=== PATIENT | female | born 1935 | race Caucasian/White ===

== ENCOUNTER 2020-05-25 19:55 | Emergency (ER) | payer SELFPAY ==
--- NOTE | 2020-05-25 20:52 | RAD REPORT ---
EXAM DESCRIPTION: RAD - Chest Single View - 05/25/2020 8:44 pm CLINICAL HISTORY: leg swelling, shortness of breath COMPARISON: None TECHNIQUE: AP portable chest image was obtained 05/25/2020 8:44 pm . FINDINGS: Lung volumes are very low accentuating heart, vasculature and lung markings. Large hiatal hernia is also present. Heart size is normal. Pulmonary vasculature within normal limits. No measurab le pleural effusion and no pneumothorax. No acute bony abnormality seen. No acute aortic findings melva pected. IMPRESSION: Limited shallow inspiration examination shows no focal mass or consolidation. Mild interstitial edema or infiltrate could be masked by the low lung volumes.
[2020-05-25 21:15] LABS: Absolute Lymphocytes (CBC) 1.3 K/uL (0.7-4.9); Basophils % 0.5 % (0-1.3); Hematocrit 39.2 % (36.0-45.0); Lymphocytes % 16.1 % (15.3-44.8); MPV 8.5 fL (7.6-11.3)
[2020-05-25 21:21] LABS: Bilirubin Direct 0.1 mg/dL (0-0.2); Bilirubin Total 0.5 mg/dL (0.2-1.0); Protein, Total 6.4 g/dL (6.4-8.2)
--- NOTE | 2020-05-25 22:24 | RAD REPORT ---
EXAM DESCRIPTION: USExtrem Venous W Compress Bil05/25/2020 9:48 pm CLINICAL HISTORY: Bilateral leg swelling COMPARISON: none FINDINGS: The common femoral, superficial femoral, popliteal and posterior tibial veins bilaterally are compressible and demonstrate augmentation. Doppler demonstrates good flow. IMPRESSION: No evidence of deep venous thrombosis involving either lower extremity.
[2020-05-25] MEDS ORDERED: CEFTRIAXONE/SWI 1gm 1 GM/10 ML SYR ONE (23:10)
[2020-05-25 23:45] LABS: Urine Bacteria LOADED /HPF (<20); Urine Culture Reflex Order REFLEXED
[2020-05-25 23:47] LABS: Urine RBC NONE SEEN /HPF (NONE SEEN)
[2020-05-26] MEDS ORDERED: MORPHINE 2 MG/ML SYR ONE (00:01)
--- NOTE | 2020-05-26 00:15 | ER ---
Nurse's Notes [facility] Name: Genet Alexander Age: 85 yrs Sex: Female : 1935 Arrival Date: 05/25/2020 Time: 19:58 Bed 5 Private MD: Diagnosis: Generalized abdominal pain;Urinary tract infection, site not specified;Edema, unspecified-bilateral lower extremity Presentation: 05/25 20:07 Chief complaint: EMS states: pt was recently discharged from [facility] with similar sg complaints to today. pt reports leg swelling and shortness of breath on exertion. Coronavirus screen: Proceed with normal triage. Ebola Screen: Patient negative for fever greater than or equal to 101.5 degrees Fahrenheit, and additional compatible Ebola Virus Disease symptoms Patient denies exposure to infectious person. Patient denies travel to an Ebola-affected area in the 21 days before illness onset. No symptoms or risks identified at this time. Initial Sepsis Screen: Does the patient meet any 2 criteria? No. Patient's initial sepsis screen is negative. Does the patient have a suspected source of infection? No. Patient's initial sepsis screen is negative. Risk Assessment: Do you want to hurt yourself or someone else? Patient reports no desire to harm self or others. Onset of symptoms was May 25, 2020. Care prior to arrival: None. 20:07 Method Of Arrival: EMS: [facility] sg 20:07 Acuity: WENDY 3 sg Historical: - Allergies: 21:58 No Known Allergies; rr5 - Home Meds: 21:58 atorvastatin 20 mg oral tab [Active]; citalopram oral [Active]; Diphenhydramine Oral rr5 [Active]; Docusate Sodium Oral [Active]; losartan 50 mg oral tab [Active]; Metoprolol Tartrate Oral [Active]; tramadol 50 mg Oral tab [Active]; - PMHx: 21:58 Hypertension; Hyperlipidemia; rr5 - PSHx: 21:58 prolapse; rr5 - Immunization history:: Adult Immunizations up to date. - Social history:: Smoking status: unknown. Screenin:30 Abuse screen: Denies threats or abuse. Denies injuries from another. Nutritional rr5 screening: No deficits noted. Tuberculosis screening: No symptoms or risk factors identified. Fall Risk IV access (20 points). Total Singh Fall Scale indicates No Risk (0-24 pts). Assessment: 21:00 General: Appears in no apparent distress. comfortable, Behavior is calm, cooperative, rr5 appropriate for age. Pain: Denies pain. Neuro: Level of Consciousness is awake, alert, obeys commands, Oriented to person, place, time. Cardiovascular: Reports shortness of breath, Capillary refill < 3 seconds Patient's skin is warm and dry. Respiratory: Reports shortness of breath Airway is patent Respiratory effort is even, unlabored, Respiratory pattern is regular, symmetrical. GI: Abdomen is round non-distended, obese. : No signs and/or symptoms were reported regarding the genitourinary system. EENT: No signs and/or symptoms were reported regarding the EENT system. Derm: Skin is intact, Skin temperature is warm. Musculoskeletal: Swelling present in left foot. 22:20 Reassessment: april daughter of the patient updated, verbal approval from the patient rr5 agreed to give information [id number]. 22:40 Reassessment: Patient appears in no apparent distress at this time. Patient is alert, rr5 oriented x 3, equal unlabored respirations, skin warm/dry/pink. 23:50 Reassessment: complaint of left leg pain pain score 8/10. ED provider aware with order rr5 made and carried out. 23:50 Reassessment: Patient appears in no apparent distress at this time. Patient and/or rr5 family updated on plan of care and expected duration. Pain level reassessed. Patient is alert, oriented x 3, equal unlabored respirations, skin warm/dry/pink. 05/26 00:40 Reassessment: Patient appears in no apparent distress at this time. Patient is alert, rr5 oriented x 3, equal unlabored respirations, skin warm/dry/pink. snacks given with good appetite. Patient states feeling better. Patient states symptoms have improved. 01:30 Reassessment: Patient appears in no apparent distress at this time. Patient is alert, rr5 oriented x 3, equal unlabored respirations, skin warm/dry/pink. for discharge awaiting for her transport. 02:15 Reassessment: Patient appears in no apparent distress at this time. Patient is alert, rr5 oriented x 3, equal unlabored respirations, skin warm/dry/pink. discharge instruction given and explained without complaints made. Patient states feeling better. Patient states symptoms have improved. Vital Signs: 05/25 20:40 BP 100 / 54; Pulse 77; Resp 20; Temp 97.9; Pulse Ox 100% ; Pain 0/10; rr5 21:52 BP 154 / 67; Pulse 75; Resp 22; Temp 98; Pulse Ox 98% on R/A; rr5 23:00 BP 144 / 64; Pulse 70; Resp 23; Pulse Ox 98% on R/A; rr5 05/26 00:00 BP 155 / 78; Pulse 85; Resp 21; Pulse Ox 98% on R/A; rr5 00:50 BP 147 / 71; Pulse 98; Resp 24; Temp 98; Pulse Ox 98% ; rr5 02:00 BP 131 / 85; Pulse 86; Resp 20; Temp 98.2; Pulse Ox 99% ; rr5 ED Course: 05/25 19:58 Patient arrived in ED. lp1 19:59 Franklin Zapata PA is PHCP. cp 19:59 Franklin Sarmiento MD is Attending Physician. cp 20:03 Ozzy Lawrence RN is Primary Nurse. rr5 20:09 Arm band placed on. sg 20:40 Patient has correct armband on for positive identification. Placed in gown. Bed in low rr5 position. Call light in reach. Side rails up X2. campus monitor on. Pulse ox on. NIBP on. 20:40 EKG done, by ED staff, reviewed by Franklin REIS. rr5 20:49 Triage completed. sg 21:00 Inserted saline lock: 20 gauge in right forearm, using aseptic technique. Blood rr5 collected. 22:59 Urine collected: clean catch specimen, clear. rr5 05/26 02:15 No provider procedures requiring assistance completed. IV discontinued, intact, rr5 bleeding controlled, No redness/swelling at site. Pressure dressing applied. Administered Medications: 05/25 23:02 Drug: Rocephin 1 grams Route: IV; Rate: calculated rate; Site: right forearm; rr5 05/26 00:10 Follow up: Response: No adverse reaction; IV Status: Completed infusion; IV Intake: [id number] 05/25 23:56 Drug: morphine 2 mg {Note: rass 0.} Route: IVP; Site: right antecubital; rr5 05/26 00:10 Follow up: Response: No adverse reaction; Pain is decreased; RASS: Alert and Calm (0) rr5 00:40 Drug: Hydrocodone-Acetaminophen (7.5 mg-325 mg) 1 tabs {Note: RASS 0.} Route: PO; rr5 02:00 Follow up: Response: No adverse reaction; Pain is decreased; RASS: Alert and Calm (0) rr5 Intake: 00:10 IV: 10ml; Total: 10ml. rr5 Outcome: 00:14 Discharge ordered by MD. cp 02:15 Discharged to home via wheelchair, with family. rr5 02:15 Condition: stable 02:15 Discharge instructions given to patient, family, Instructed on discharge instructions, follow up and referral plans. medication usage, Demonstrated understanding of instructions, follow-up care, medications, Prescriptions given X 1. 02:18 Patient left the ED. rr5 Addendum: 05/30/2020 10:27 Addendum: Culture Results: Positive urine culture. No further action required. Bacteria s s sensitive to prescribed antibiotic. Signatures: Fareed Rey, RN RN sg Mariama Khanna RN RN ss Yoselyn Sykes RN RN lp1 Franklin Zapata PA PA cp Roque, Raymond, RN RN rr5
--- NOTE | 2020-05-26 00:15 | EDPHYS ---
Physician Documentation [facility] Name: Genet Alexander Age: 85 yrs Sex: Female : 1935 Arrival Date: 05/25/2020 Time: 19:58 Bed 5 Private MD: ED Physician Franklin Sarmiento HPI: 05/25 20:30 This 85 yrs old Female presents to ER via Unassigned with complaints of cp Abdominal Pain. 20:30 The patient presents with abdominal pain that is diffuse. cp 20:30 Onset: The symptoms/episode began/occurred today, while in restroom at home. cp 20:30 The symptoms do not radiate. Associated signs and symptoms: Pertinent positives: cp bilateral leg pain and swelling, Pertinent negatives: blood in stools, chest pain, constipation, diarrhea, fever, vomiting. Severity of pain: in the emergency department the pain has resolved. Historical: - Allergies: 21:58 No Known Allergies; rr5 - Home Meds: 21:58 atorvastatin 20 mg oral tab [Active]; citalopram oral [Active]; Diphenhydramine Oral rr5 [Active]; Docusate Sodium Oral [Active]; losartan 50 mg oral tab [Active]; Metoprolol Tartrate Oral [Active]; tramadol 50 mg Oral tab [Active]; - PMHx: 21:58 Hypertension; Hyperlipidemia; rr5 - PSHx: 21:58 prolapse; rr5 - Immunization history:: Adult Immunizations up to date. - Social history:: Smoking status: unknown. ROS: 20:35 Constitutional: Negative for body aches, chills, fever, poor PO intake. cp 20:35 Eyes: Negative for injury, pain, redness, and discharge. cp 20:35 ENT: Negative for ear pain, sore throat, difficulty swallowing, difficulty handling secretions. 20:35 Cardiovascular: Positive for edema, Negative for chest pain, palpitations. 20:35 Respiratory: Negative for cough, shortness of breath, wheezing. 20:35 Abdomen/GI: Positive for abdominal pain, Negative for nausea, vomiting, and diarrhea, constipation, black/tarry stool, rectal bleeding. 20:35 Back: Negative for radiated pain. 20:35 : Negative for urinary symptoms. 20:35 Skin: Negative for rash. 20:35 Neuro: Negative for altered mental status, headache, numbness, tingling, weakness. 20:35 All other systems are negative. Exam: 20:39 ECG was reviewed by the Attending Physician. cp 20:40 Constitutional: The patient appears in no acute distress, alert, awake, cp non-diaphoretic, non-toxic, well developed, well nourished. 20:40 Head/Face: Normocephalic, atraumatic. cp 20:40 Eyes: Periorbital structures: appear normal, Conjunctiva: normal, no exudate, no injection, Sclera: no appreciated abnormality, Lids and lashes: appear normal, bilaterally. 20:40 ENT: External ear(s): are unremarkable, Nose: is normal, Mouth: Lips: moist, Oral mucosa: pink and intact, moist, Posterior pharynx: is normal, airway is patent, no erythema, no exudate. 20:40 Chest/axilla: Inspection: normal, Palpation: is normal, no crepitus, no tenderness. 20:40 Cardiovascular: Rate: normal, Rhythm: regular, Edema: 2+ edema to level of right lower leg and left lower leg, JVD: is not appreciated. 20:40 Respiratory: the patient does not display signs of respiratory distress, Respirations: labored breathing, is not present, intercostal retractions, are absent, shallow respirations, that is mild, Breath sounds: are clear throughout, no decreased breath sounds, no stridor, no wheezing. 20:40 Abdomen/GI: Inspection: abdomen appears normal, Bowel sounds: active, all quadrants, Palpation: abdomen is soft and non-tender, in all quadrants, rebound tenderness, is not appreciated, voluntary guarding, is not appreciated, involuntary guarding, is not appreciated. 20:40 Back: pain, is absent. 20:40 Skin: cellulitis, is not appreciated, no rash present. 20:40 Neuro: Orientation: to person, place \T\ time. Mentation: is normal, Motor: moves all fours, strength is normal. Vital Signs: 20:40 BP 100 / 54; Pulse 77; Resp 20; Temp 97.9; Pulse Ox 100% ; Pain 0/10; rr5 21:52 BP 154 / 67; Pulse 75; Resp 22; Temp 98; Pulse Ox 98% on R/A; rr5 23:00 BP 144 / 64; Pulse 70; Resp 23; Pulse Ox 98% on R/A; rr5 07 00:00 BP 155 / 78; Pulse 85; Resp 21; Pulse Ox 98% on R/A; rr5 00:50 BP 147 / 71; Pulse 98; Resp 24; Temp 98; Pulse Ox 98% ; rr5 02:00 BP 131 / 85; Pulse 86; Resp 20; Temp 98.2; Pulse Ox 99% ; rr5 MDM: 05/25 20:08 Patient medically screened. cp 21:00 Differential diagnosis: appendicitis, bowel obstruction, cholecystitis, Cholelithiasis, cp diverticulitis, gastritis, non-specific abd pain, pancreatitis, Ureterolithiasis, urinary tract infection, cardiac arrythmia, CHF. 05/26 00:13 Data reviewed: vital signs, nurses notes, lab test result(s), EKG, radiologic studies, cp plain films, ultrasound. 00:13 Counseling: I had a detailed discussion with the patient and/or guardian regarding: the cp historical points, exam findings, and any diagnostic results supporting the discharge/admit diagnosis, lab results, radiology results, to return to the emergency department if symptoms worsen or persist or if there are any questions or concerns that arise at home. 00:13 Test interpretation: by ED physician or midlevel provider: ECG. Response to treatment: cp the patient's symptoms have markedly improved after treatment, and as a result, I will discharge patient. Special discussion: Based on the patient's Hx, exam, and Dx evaluation, there is no indication for emergent surgery or inpatient Tx. It is understood by the patient/guardian that if the Sx's persist or worsen they need to return immediately for re-evaluation. 05/25 20:08 Order name: Basic Metabolic Panel 05/25 20:08 Order name: CBC with Diff cp 05/25 20:08 Order name: Hepatic Function; Complete Time: 22:08 cp 05/25 22:09 Interpretation: Normal except: ALB 3.0; A/G 0.9. cp 05/25 20:08 Order name: Lipase; Complete Time: 22:08 cp 05/25 20:08 Order name: Urine Microscopic Only; Complete Time: 23:51 cp 05/26 00:09 Interpretation: Normal except: UBACT LOADED. cp 05/25 20:10 Order name: Basic Metabolic Panel; Complete Time: 22:08 EDMS 05/25 22:09 Interpretation: Normal except: CL 108; GLUC 158; GFR 60. cp 05/25 20:09 Order name: US Extremity Venous W Compression Terrence cp 05/25 20:10 Order name: CBC with Automated Diff; Complete Time: 22:08 EDMS 05/26 00:09 Interpretation: Normal except: RDW 15.5; MN% 12.8. cp 05/25 20:10 Order name: XRAY Chest (1 view) cp 05/25 20:10 Order name: BNP; Complete Time: 22:09 cp 05/25 20:53 Order name: RAD; Complete Time: 22:09 EDMS 05/25 22:10 Order name: XRAY KUB cp 05/25 23:08 Order name: US; Complete Time: 23:51 EDMS 05/25 23:15 Order name: Urine Dipstick--Ancillary (enter results) ar5 05/25 20:08 Order name: IV Saline Lock; Complete Time: 21:10 cp 05/25 20:08 Order name: Labs collected and sent; Complete Time: 21:10 cp 05/25 20:08 Order name: Urine Dipstick-Ancillary (obtain specimen); Complete Time: 22:58 cp 05/25 20:10 Order name: EKG; Complete Time: 20:11 cp 05/25 20:10 Order name: EKG - Nurse/Tech; Complete Time: 20:40 cp EC/08 20:39 Rate is 77 beats/min. Rhythm is regular. AR interval is shortened at 98 msec. QRS cp interval is normal. QT interval is normal. Interpreted by me. Reviewed by me. Administered Medications: 23:02 Drug: Rocephin 1 grams Route: IV; Rate: calculated rate; Site: right forearm; rr5 05/26 00:10 Follow up: Response: No adverse reaction; IV Status: Completed infusion; IV Intake: [id number] 05/25 23:56 Drug: morphine 2 mg {Note: rass 0.} Route: IVP; Site: right antecubital; rr5 05/26 00:10 Follow up: Response: No adverse reaction; Pain is decreased; RASS: Alert and Calm (0) rr5 00:40 Drug: Hydrocodone-Acetaminophen (7.5 mg-325 mg) 1 tabs {Note: RASS 0.} Route: PO; rr5 02:00 Follow up: Response: No adverse reaction; Pain is decreased; RASS: Alert and Calm (0) rr5 Disposition: 06:08 Co-signature as Attending Physician, Franklin Sarmiento MD I agree with the assessment and [facility] plan of care. Disposition: 05/26/20 00:14 Discharged to Home. Impression: Generalized abdominal pain, Urinary tract infection, site not specified, Edema, unspecified - bilateral lower extremity. - Condition is Stable. - Discharge Instructions: Abdominal Pain, Adult, Edema, Urinary Tract Infection, Adult. - Prescriptions for Keflex 500 mg Oral Capsule - take 1 capsule by ORAL route every 12 hours for 10 days; 20 capsule. - Medication Reconciliation Form, Thank You Letter, Antibiotic Education, Prescription Opioid Use form. - Follow up: Private Physician; When: 2 - 3 days; Reason: Recheck today's complaints. - Problem is new. - Symptoms have improved. Signatures: Dispatcher [employer] EDMS Fareed Rey RN RN sg Anderson, Corey, MD MD cha Page, Corey, PA PA cp Roque, Raymond, RN RN rr5 Corrections: (The following items were deleted from the chart) 00:16 00:14 05/26/2020 00:14 Discharged to Home. Impression: Generalized abdominal pain; cp Urinary tract infection, site not specified. Condition is Stable. Forms are Medication Reconciliation Form, Thank You Letter, Antibiotic Education, Prescription Opioid Use. Follow up: Private Physician; When: 2 - 3 days; Reason: Recheck today's complaints. Problem is new. Symptoms have improved. cp 02:17 00:16 05/26/2020 00:14 Discharged to Home. Impression: Generalized abdominal pain; rr5 Urinary tract infection, site not specified; Edema, unspecified - bilateral lower extremity. Condition is Stable. Discharge Instructions: Abdominal Pain, Adult, Edema, Urinary Tract Infection, Adult. Forms are Medication Reconciliation Form, Thank You Letter, Antibiotic Education, Prescription Opioid Use. Follow up: Private Physician; When: 2 - 3 days; Reason: Recheck today's complaints. Problem is new. Symptoms have improved. cp 02:18 02:17 05/26/2020 00:14 Discharged to Home. Impression: Generalized abdominal pain; rr5 Urinary tract infection, site not specified; Edema, unspecified - bilateral lower extremity. Condition is Stable. Discharge Instructions: Abdominal Pain, Adult, Edema, Urinary Tract Infection, Adult. Prescriptions for Keflex 500 mg Oral Capsule - take 1 capsule by ORAL route every 12 hours for 10 days; 20 capsule. and Forms are Medication Reconciliation Form, Thank You Letter, Antibiotic Education, Prescription Opioid Use. Follow up: Private Physician; When: 2 - 3 days; Reason: Recheck today's complaints. Problem is new. Symptoms have improved. rr5
[2020-05-26] MEDS ORDERED: HYDROCODONE/APAP 7.5/325 MG TAB ONE (00:31)
[2020-05-26 02:54] VITALS: TEMP 98; O2SAT 98
[2020-05-26 02:57] VITALS: BP 147/71
--- NOTE | 2020-05-26 07:29 | RAD REPORT ---
EXAM DESCRIPTION: RAD - Abdomen 1 View (KUB) - 05/26/2020 12:27 am CLINICAL HISTORY: Abdomen pain. FINDINGS: The bowel gas pattern is unremarkable. Round calcifications in the pelvis probably phleboliths. 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
[2020-05-26 22:05] LABS: Urine Blood TRACE (NEG); Urine Glucose NEGATIVE (NEG); Urine Protein NEGATIVE (NEG); Urine Specific Gravity >1.030 (1.005-1.030); Urine pH 5.5 (5.0-7.0)
== END 2020-05-26 02:18 | disposition home or self-care (01) ==
LOC: ER 19:55
DX: N39.0 Urinary tract infection, site not specified (principal); R60.9 Edema, unspecified; R10.84 Generalized abdominal pain
CPT/HCPCS: 36415; 71045; 74018; 80048; 80076; 81003; 81015; 83690; 83880; 85025; 87077; 87086; 87088; 87186; 93005; 93970; 96365; 96375; 99285; J0696